=== PATIENT | male | born 1990 | race Caucasian/White ===

== ENCOUNTER 2021-04-15 10:01 | Emergency (ER) | payer OTHER ==
[~2021-04-15] VITALS: Ht 172.7 cm; Wt 88.0 kg
[2021-04-15 10:15] VITALS: BP 137/81
--- NOTE | 2021-04-15 10:40 | PHYS DOC ---
Past History Past Medical History: No Pertinent History Past Surgical History: No Surgical History Adult General Chief Complaint Chief Complaint: ALLERGIC REACTION HPI HPI Patient is a 31-year-old male presenting for poison angella contact. Was helping father mow yard and do yard chores 4 days prior when later he developed he was in poison oak. He has history of this, states he develops classic rash which is most focal to bilateral upper extremities and around his left neck which is where he said he has been scratching the last couple days. Has never been hospitalized for this, states he has severe pruritic rash that he has had to go to the emergency department for in the past. Patient is knowledgeable and has been trying supportive care practices at home such as cool wet compresses, ice packs, special oatmeal bath soaps etc. but symptoms persisted. As such, he presents to ER requesting steroid shot Review of Systems Review of Systems Fourteen body systems of review of systems have been reviewed. See HPI for pertinent positives and negative responses, other deleon all other systems are negative, non-pertinent or non-contributory Physical Exam Physical Exam Constitutional: Well developed, well nourished, no acute distress, non-toxic appearance. HENT: Normocephalic, atraumatic, bilateral external ears normal, oropharynx moist, no oral exudates, tolerating secretions, no phonation, nose normal. Eyes: PERRLA, EOMI, conjunctiva normal, no discharge. Neck: Normal range of motion, no tenderness, supple, no stridor. Cardiovascular: Heart rate regular, sinus rhythm, no murmurs rubs or gallops Lungs & Thorax: Bilateral breath sounds clear to auscultation Abdomen: Bowel sounds normal, soft, no tenderness, no masses, no pulsatile masses. Nonsurgical abdomen, no peritoneal signs Skin: Warm, dry, no erythema, he has rash mostly focal to bilateral upper extremities with mild involvement of left anterior and posterior neck and left cheek consistent with contact dermatitis from recent poison angella exposure Back: No tenderness, no CVA tenderness. Extremities: No tenderness, no cyanosis, no clubbing, ROM intact, no edema. Neurologic: Alert and oriented X 3, grossly normal motor & sensory function, no focal deficits noted. Psychologic: Affect normal, judgement normal, mood normal. Current Patient Data Vital Signs Vital Signs Date Time Temp Pulse Resp B/P (MAP) Pulse Ox O2 Delivery O2 Flow Rate FiO2 04/15/21 10:15 96.6 102 16 137/81 96 Room Air EKG EKG [] Radiology/Procedures Radiology/Procedures [] Heart Score C/O Chest Pain: No Risk Factors: Risk Factors: DM, Current or recent (<one month) smoker, HTN, HLP, family history of CAD, obesity. Risk Scores: Risk Factors: DM, Current or recent (<one month) smoker, HTN, HLP, family history of CAD, obesity. Course & Med Decision Making Course & Med Decision Making ABCs unremarkable. I disclosed entirety of ER findings and discussed most likely diagnosis of contact dermatitis secondary to poison angella exposure. I discussed risks and benefits of steroids, this does not appear to be a severe disease and so prolonged steroid taper is not indicated. I did offer and subsequently administer 40 mg Depo-Medrol IM and advised patient to continue supportive care practices at home such as oatmeal baths, ice packs, topical calamine lotions, oral antihistamines etc. Joint decision to defer any further ER work-up given appearance and clinical presentation, as such I stressed need for close outpatient follow-up to review today's ER visit. Strict return precautions were also discussed at length with good understanding by patient. Patient voiced understanding and agreement with the plan. Patient knows to come back for repeat evaluation if concerning signs or symptoms present prior to outpatient follow- up. Hemodynamically stable, ambulatory and well-appearing at time of disposition. Dragon Disclaimer Dragon Disclaimer This electronic medical record was generated, in whole or in part, using a voice recognition dictation system. Departure Departure: Impression: Primary Impression: Poison oak dermatitis Disposition: HOME / SELF CARE / HOMELESS Condition: STABLE Referrals: PCP,UNKNOWN (PCP) Patient Instructions: [place]ison [place] Additional Instructions: You were seen for a rash. This is consistent with prior exposure to poison angella/oak. As disclose there is no indication for further diagnostic work-up and/or intervention while in ER setting. You are given a steroid shot which should last several days and improve your symptoms. In the meantime, you should continue soothing measures such as oatmeal baths, cool and wet compresses, ice packs, topical calamine lotions, and oral antihistamine such as Benadryl that will make you sleepy or other options such as Claritin/Emperatriz/Zyrtec that will not make you sleepy. You can consider using topical corticosteroids but there is no evidence it alters course of disease once vesicles are established. Return to the ED if you develop redness, fever, swelling, pain, or worsening/new symptoms. JUVENCIO POE DO Apr 15, 2021 10:40
[2021-04-15] MEDS ORDERED: methylPREDNISolone ACETATE 40 MG/ML VIAL. ONE (10:54)
[2021-04-15] MEDS: methylPREDNISolone ACETATE 40 MG/ML VIAL. IM ONE (10:56)
== END 2021-04-15 11:00 | disposition home or self-care (01) ==
LOC: ER 10:01
DX: L23.7 Allergic contact dermatitis due to plants, except food (principal)
CPT/HCPCS: 96372; 99283; J1030